=== PATIENT | female | born 1965 | race Caucasian/White ===

== ENCOUNTER 2019-11-25 | Emergency (ER) | payer BC ==
[~2019-11-25] MED LIST: FLEXERIL OR; NAPROSYN500 MG PO; SINGULAIR PO; TOPAMAX50 MG PO; ULTRAM50 M1 PO; VESICARE10 MG PO; WELLBUTRIN SR150 M1 PO; ZOFRAN4 MG/TAB PO
[2019-11-25] MEDS ORDERED: OMEPRAZOLE20 MG PO (15:54)
[2019-11-25] MEDS ORDERED: CYMBALTA20 MG PO (15:55)
[2019-11-25 16:49] LABS: HEMATOCRIT 40.7 % (37.0-47.0); HEMOGLOBIN 13.2 g/dl (12.0-16.0); IMMATURE GRANULOCYTES 0.3 % (0.0-5.0); MEAN CELL VOLUME 96.2 fL CALC (80.0-100.0); MEAN CORPUSCULAR HGB 31.2 pG CALC (26.0-32.0); MEAN CORPUSCULAR HGB CONC 32.4 g/L CALC (32.0-36.0); NEUT# 7.73 thou/uL (2.00-7.15); RED BLOOD COUNT 4.23 mill/uL (4.20-5.60); RED CELL DISTRI WIDTH 12.2 % (11.5-15.5)
[2019-11-25 17:04] LABS: URINE BILIRUBIN - DIPSTICK NEGATIVE (NEGATIVE); URINE BLOOD DIPSTICK NEGATIVE (NEGATIVE); URINE COLOR YELLOW; URINE GLUCOSE - DIPSTICK NEGATIVE (NEGATIVE); URINE KETONE NEGATIVE (NEGATIVE); URINE LEUK ESTERASE NEGATIVE (NEGATIVE); URINE NITRITE - DIPSTICK NEGATIVE (Negative); URINE PROTEIN - DIPSTICK NEGATIVE (NEG-TRACE); URINE UROBILINOGEN - DIPSTICK 0.2 E.U./dL (0.2)
[2019-11-25 17:10] LABS: ALBUMIN 4.6 g/dL (3.2-5.0); ALKALINE PHOSPHATASE 94 u/l (38-126); ANION GAP 14 (6-22 (CALC)); BILIRUBIN, TOTAL 0.4 mg/dL (0.0-1.4); BUN 22 mg/dL (7-17); BUN/CREATININE RATIO 27 (12-20 (CALC)); CARBON DIOXIDE 27 mmol/l (22-30); CHLORIDE 105 mmol/l (95-108); CREATININE 0.8 mg/dL (0.5-1.0); GFR > 60 ML/MIN (>=60 (CALC)); GFR FOR AFR.AMER. > 60 ML/MIN (>=60 (CALC)); LIPASE 98 u/l (23-300); POTASSIUM 4.3 mmol/l (3.5-5.1); SGOT/AST 21 u/l (14-36); SODIUM 141 mmol/l (137-146); TOTAL PROTEIN 8.3 g/dL (6.3-8.2)
[2019-11-25] MEDS ORDERED: PHENERGAN25 MG/TAB PO (19:05)
== END 2019-11-25 19:20 | disposition home or self-care (01) | DRG 392 ==
PROVIDERS: Family Medicine
DX: R10.84 Generalized abdominal pain (principal); R11.0 Nausea; R51 Headache
CPT/HCPCS: J2060; Q9967